=== PATIENT | male | born 1955 | race Caucasian/White ===

== ENCOUNTER 2017-04-01 03:36 | Day surgery (SDC) | payer BC, OTHER ==
[2017-04-01] VITALS (8 sets, daily range): BP systolic 85–153; BP diastolic 64–94
[~2017-04-01] VITALS: Ht 177.8 cm; Wt 101.2 kg
[~2017-04-01 03:36] MED LIST: ATOR40TA24 PO; CEP500 PO; GEM600 PO; IBU200 PO; IBUP200C74 PO; LISI-362 PO; OMEG-11 PO; OXYM15MI14 NS; PER PO; TRILI135PT PO
[2017-04-01] MEDS ORDERED: ceFAZolin(*) 2GM/D5W 50ML 50 ML IVPB ONE (06:15)
[2017-04-01] MEDS ORDERED: NORMOSOL R SOLN(*) 1000 ML BAG 1,000 ML IV PRN (06:15)
[2017-04-01] MEDS ORDERED: MIDAZOLAM 2 MG/2 ML VIAL IVP PRN (06:15)
[2017-04-01] MEDS ORDERED: LIDOCAINE/SOD BICARB 8.4% SYR ID ONE (06:15)
[2017-04-01] MEDS ORDERED: CELECOXIB 200 MG CAP PO ONE (06:15)
[2017-04-01] MEDS ORDERED: FAMOTIDINE 20 MG TAB PO ONE (06:15)
[2017-04-01] MEDS ORDERED: ROPIVACAINE 0.2% 20 ML VIAL ONE (06:31)
[2017-04-01] MEDS ORDERED: BUPIV/EPI 0.25% 1:200,000 50ML INFIL ONE (06:31)
[2017-04-01] MEDS ORDERED: NEOMYCIN/POLYMYX/BACITR 30 GM TP ONE (06:31)
[2017-04-01] MEDS ORDERED: fentaNYL CITR 100 MCG/2 ML AMP ONE (06:45)
[2017-04-01] MEDS ORDERED: DEXAMETHASONE SOD PHOS 10MG/ML ONE (06:47)
[2017-04-01] MEDS ORDERED: LIDOCAINE MPF 1% 5 ML VIAL ONE (06:47)
[2017-04-01] MEDS ORDERED: ONDANSETRON 4 MG/2 ML VIAL ONE (06:47)
[2017-04-01] MEDS ORDERED: PROPOFOL EMUL(*) 10MG/ML 20 ML 20 ML ONE ×2 (06:47→08:24)
[2017-04-01] MEDS ORDERED: NS 0.9% 20 ML SDV 20 ML ONE (06:48)
[2017-04-01] MEDS ORDERED: ROPIVACAINE 0.5% 20 ML VIAL ONE (06:48)
[2017-04-01] MEDS ORDERED: EPINEPHrine HCL 1 MG/ML AMP ONE (06:48)
[2017-04-01] MEDS ORDERED: HALOPERIDOL LACT 5 MG/ML VIAL IM ONE (07:02)
[2017-04-01] MEDS ORDERED: ROCURONIUM BROM 10 MG/ML 5 ML ONE (07:30)
[2017-04-01] MEDS ORDERED: SUCCINYLCHOL CHL 100MG/5ML SYR IVP ONE (07:30)
[2017-04-01] MEDS ORDERED: SUGAMMADEX SOD 200 MG/2 ML SDV ONE (08:22)
[2017-04-01] MEDS ORDERED: CEPH500T7 PO (09:34)
[2017-04-01] MEDS ORDERED: OXYC-865 PO (09:34)
--- NOTE | 2017-04-01 15:28 | OPERATIVE REPORT 1 ---
EVENT DATE: April 01, 2017 SURGEON: Anthony Selby MD ANESTHESIOLOGIST: Marvin Glass MD ANESTHESIA: General plus scalene block. ANALYSIS SPECIALIST: KELLY Baker PREOPERATIVE DIAGNOSIS Left shoulder rotator cuff tear with subacromial impingement. acromioclavicular joint degenerative joint disease, and possible labral damage. POSTOPERATIVE DIAGNOSIS Full-thickness rotator cuff tear at supraspinatus with extensive biceps tendon damage extending into the labrum with subacromial impingement and acromioclavicular joint degenerative joint disease. PROCEDURE PERFORMED Debridement of superior labral anterior-posterior tear and biceps release with rotator cuff repair, subacromial decompression, and lateral clavicle excision. ESTIMATED BLOOD LOSS Minimal. INTRAVENOUS FLUIDS 1500 mL TOURNIQUET TIME None. SPECIMENS None. COMPLICATIONS None. IMPLANTS Juggernaut 1.9 mm medially and 4.5 mm Quattro Link laterally. SUMMARY OF PROCEDURE The patient was brought into the operating room and placed on the OR table in the supine position. He was given a scalene block by Dr. Glass, after which he was given a light general anesthetic and placed in the beach chair position. The Raf shoulder bryant was used for traction and positioning. Standard arthroscopic assessment was undertaken beginning with the posterior visualization and an anterior instrumentation portal. Immediately evident upon entering the joint was that the biceps had a tear extending longitudinally along its axis and down into the superior half of the labrum with a piece of the labrum and biceps attached hanging down inside the joint. I would suspect that this actually could have caused very significant discomfort and probably would have caused even more pain than the rotator cuff tear. This tissue was debrided with a shaver and cleaned up at the margin of the joint. We then released the rest of the biceps as well. The rotator cuff was debrided down to the footprint. I then marked the site from the outside and brought a switching stick in and then used a shaver and a bur to prepare the rotator cuff repair site. Visualizing from within the joint, I then passed a cannula from outside and placed the single medial anchor that we were to use for this repair, which was a 1.9 mm Juggernaut. We then went to the subacromial space. We did a bursectomy, and he had a fairly large subacromial spur which was removed. We also removed the undersurface of the clavicle and took off about 5 or 6 mm of the lateral aspect of the clavicle to affect a lateral clavicle excision. That way, there would not be any contact, and the bone spur would be less likely to return. A lot of the work that we had to do involved the medial aspect of the acromion as it mated with the arthritic AC joint because there was quite a bit of bone spur there as well. We then redirected our attention to the rotator cuff. A FastPass system was used to pass the four sutures from the single medial anchor up through the rotator cuff. They were then tied. These four limbs were then drawn into a 4.5 mm Quattro Link anchor placed into the greater tuberosity laterally. The shoulder was drained. Arthroscopic portals were closed with nylon. He was awakened and transferred to the post- anesthesia care unit in stable condition. FRANCIS
== END 2017-04-01 10:05 | disposition home or self-care (01) ==
LOC: OR 03:36
PROVIDERS: ATTEND Orthopaedic Surgery Hand Surgery
DX: M75.112 Incomplete rotator cuff tear or rupture of left shoulder, not specified as traumatic (principal); M75.42 Impingement syndrome of left shoulder; M19.012 Primary osteoarthritis, left shoulder
CPT/HCPCS: 29826; 29827; C1713; J0171; J0330; J1100; J1630; J2001; J2250; J2405; J2704; J2795; J3010; J7050; L3670; J0690